=== PATIENT | female | born 1995 | race African-American/Black ===

== ENCOUNTER → 2017-03-10 | Outpatient (CLI) | payer SELFPAY ==
--- NOTE | 2017-03-10 17:35 | RADIOLOGY REPORT (SQ) ---
EXAM DESCRIPTION: U/S [id number] TRNABD 1GES W/ODOP COMPLETED DATE/TIME: 03/10/2017 5:27 pm REASON FOR STUDY: Z34.81 ENCOUNTER FOR SUPRVSN OF NORMAL , FIRST TRIM COMPARISON: None. TECHNIQUE: Transabdominal static and realtime grayscale images acquired of the pelvis. Additional se lected spectral and color Doppler images recorded. All images stored on PACs. bHCG: Not available LIMITATIONS: None. FINDINGS: FETUS: Living intrauterine . EGA: 10 weeks 4 days UMA: 10/02/2017 FHR: 178 beats per minute. SUBCHORIONIC BLEED: No SIZE OF BLEED: Not applicable. 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 The IUP appears to be in the left horn . CERVICAL LENGTH: 4 cm Closed. RIGHT ADNEXA: Normal ovary with normal vascular flow. No adnexal free fluid. No adnexal masses. LEFT ADNEXA: Normal ovary with normal vascular flow. No adnexal free fluid. No adnexal masses. FREE FLUID: None. OTHER: No other significant finding. IMPRESSION: LIVING INTRAUTERINE . EGA 10 weeks 4 days Trimester of : First - 0 to 13 weeks. TECHNICAL DOCUMENTATION: JOB ID: [id number] [email or web address]- All Rights Reserved
== END ==
LOC: RAD 15:48
PROVIDERS: ATTEND Nurse Practitioner Women's Health
DX: Z34.81 Encounter for supervision of other normal pregnancy, first trimester (principal)
CPT/HCPCS: 76801

== ENCOUNTER 2017-08-14 02:05 | Emergency (ER) | payer MEDICAID ==
[2017-08-14] MEDS ORDERED: LIDOCAINE 2% VISCOUS SOLN 20 ML UDCUP PO ONE (03:42)
[2017-08-14] MEDS ORDERED: ACETAMINOPHEN 325 MG TABLET PO ONE (03:43)
--- NOTE | 2017-08-14 03:46 | ER Document Report ---
HPI - HPI Pain Level: 4 Notes: Patient is a 22-year-old female who is approximately 8 months who presents the ED complaining of right lower dental pain to #323 days. Patient has not noticed any obvious abscess or drainage. Patient states that the pain is described as an ache and does not radiate. Patient has not noticed any facial swelling. She is still eating and drinking without any difficulties. She is urinating normally and having normal bowel movements. Patient does not have a dentist. Denies any headache, fever, neck pain, URI, sore throat, chest pain, palpitations, syncope, cough, shortness of breath, wheeze, dyspnea, abdominal pain, nausea/vomiting/diarrhea, urinary retention, dysuria, hematuria , loss of control of bowel or bladder, numbness/tingling, or rash. - ROS Notes: REVIEW OF SYSTEMS: CONSTITUTIONAL : Denies fever, chills, or sweats. Denies recent illness. EENT: see hpi CARDIOVASCULAR: Denies chest pain. Denies palpitations or racing or irregular heart beat. Denies ankle edema. RESPIRATORY: Denies cough, cold, or chest congestion. Denies shortness of breath, difficulty breathing, or wheezing. GASTROINTESTINAL: Denies abdominal pain or distention. Denies nausea, vomiting , or diarrhea. Denies blood in vomitus, stools, or per rectum. Denies black, tarry stools. Denies constipation. GENITOURINARY: Denies difficulty urinating, painful urination, burning, frequency, blood in urine, or discharge. MUSCULOSKELETAL: Denies back or neck pain or stiffness. Denies joint pain or swelling. SKIN: Denies rash, lesions or sores. NEUROLOGICAL: Denies dizziness or lightheadedness. Denies headache. Denies problems with gait or speech. Denies sensory loss, numbness, or tingling. Denies seizures. ALL OTHER SYSTEMS REVIEWED AND NEGATIVE. Dictation was performed using [employer] voice recognition software - REPRODUCTIVE LMP: 12-27-16 Reproductive: DENIES: : Past Medical History - Social History Smoking Status: Never Smoker Family History: Reviewed & Not Pertinent Vertical Provider Document - CONSTITUTIONAL Agree With Documented VS: Yes Notes: PHYSICAL EXAMINATION: GENERAL: Well-appearing, well-nourished and in no acute distress. HEAD: Atraumatic, normocephalic. EYES: Pupils equal round and reactive to light, extraocular movements intact, sclera anicteric, conjunctiva are normal. ENT: EAC clear b/l. TM's intact b/l without erythema, fluid, or perforation. Nares patent and without discharge. oropharynx clear without exudates. No tonsilar hypertrophy or erythema. Moist mucous membranes. No sinus tenderness. Uvula midline. No palatine shift. No tongue protrusion. No respiratory compromise. Mouth: Poor dentition. + mild decay and mild gingivitis. No obvious abscess or discharge noted. No facial swelling. + tenderness to tooth #32. NECK: Normal range of motion, supple without lymphadenopathy. No rigidity/ meningismus. LUNGS: Breath sounds clear to auscultation bilaterally and equal. No wheezes rales or rhonchi. HEART: Regular rate and rhythm without murmurs, rubs, gallops. NEUROLOGICAL: Cranial nerves grossly intact. Normal speech, normal gait. Normal sensory, motor exams PSYCH: Normal mood, normal affect. SKIN: Warm, Dry, normal turgor, no rashes or lesions noted. - INFECTION CONTROL TRAVEL OUTSIDE OF THE [place] IN LAST 30 DAYS: No - RESPIRATORY O2 Sat by Pulse Oximetry: 100 Course - Re-evaluation Re-evalutation: 08/14/17 03:59 Patient is an afebrile, well-hydrated, 22-year-old female who presents to the ED with dental pain to #32, suspect nerve root etiology versus infection. Vitals are stable. PE is otherwise unremarkable. Low suspicion for any meningitis, sepsis, peritonsillar/pharyngeal abscess, respiratory compromise, Talha's, temporal arteritis, or other emergent systemic condition at this time. Patient is aware this condition can change from initial presentation and she needs to monitor symptoms closely. I will send her home with a prescription for penicillin as well as viscous lidocaine. Conservative measures otherwise for symptoms. Call to schedule an appointment with a dentist for further evaluation and management. Recheck with your PCM this week as well. Return to the ED with any worsening/concerning symptoms otherwise as reviewed in discharge. Patient is in agreement. - Vital Signs Vital signs: Temp Pulse Resp BP Pulse Ox 98.6 F 97 18 118/64 100 08/14/17 02:18 08/14/17 02:18 08/14/17 02:18 08/14/17 02:18 12/31/17 02:18 Discharge - Discharge Clinical Impression: Toothache Condition: Stable Disposition: HOME, SELF-CARE Instructions: [facility], Toothache ([facility]) Additional Instructions: [place] and floss twice daily Maintain fluid intake Take antibiotics as directed Mouthwash, salt water gargles, peroxide rinse as needed Tylenol/ibuprofen as needed Recheck with PCM this week Call today/tomorrow and schedule an appointment with your dentist for further evaluation Return to the ED with any worsening symptoms and/or development of fever, headache, facial swelling, swelling of lips/tongue/throat, trouble swallowing, drooling, hoarseness, neck pain/stiffness, chest pain, palpitations, syncope, shortness of breath, trouble breathing, abdominal pain, n/v/d, numbness/tingling , or other worsening symptoms that are concerning to you. Prescriptions: Penicillin V Potassium [Penicillin Vk 500 mg Tablet] 500 mg PO BID #20 tablet Referrals: [facility] [Provider Group] - Follow up as needed
[2017-08-14 04:23] VITALS: BP 109/64
== END 2017-08-14 04:22 | disposition home or self-care (01) ==
LOC: ER 02:05
DX: K08.89 Other specified disorders of teeth and supporting structures (principal); R22.0 Localized swelling, mass and lump, head; Z3A.36 36 weeks gestation of pregnancy
CPT/HCPCS: 99282; J3490 ×2

== ENCOUNTER 2017-10-05 14:07 | Outpatient (CLI) | payer OTHER, MEDICAID ==
[2017-10-05 14:41] LABS: APPEARANCE,URINE CLOUDY; BILIRUBIN,URINE NEGATIVE (NEGATIVE); COLOR,URINE YELLOW; GLUCOSE, URINE NEGATIVE (NEGATIVE); KETONES,URINE NEGATIVE (NEGATIVE); LEUKOCYTE ESTERASE,URINE MODERATE (NEGATIVE); NITRITE,URINE NEGATIVE (NEGATIVE); PROTEIN,URINE NEGATIVE (NEGATIVE); URINE SPECIFIC GRAVITY 1.009; UROBILINOGEN,URINE NEGATIVE mg/dL (<2.0)
[2017-10-05 15:03] LABS: URINE AMPHETAMINES SCREEN NEGATIVE; URINE BARBITURATES SCREEN NEGATIVE; URINE BENZODIAZEPINES SCREEN NEGATIVE; URINE COCAINE SCREEN NEGATIVE; URINE MARIJUANA (THC) SCREEN NEGATIVE; URINE METHADONE SCREEN NEGATIVE; URINE PHENCYCLIDINE SCREEN NEGATIVE
== END 2017-10-05 15:15 | disposition home or self-care (01) ==
LOC: LC 14:07
PROVIDERS: ATTEND Obstetrics & Gynecology
PROC: 4A1HXCZ Monitoring of Products of Conception, Cardiac Rate, External Approach (ICD-10-PCS; principal; 2017-10-05)
DX: O47.1 False labor at or after 37 completed weeks of gestation (principal); Z3A.40 40 weeks gestation of pregnancy
CPT/HCPCS: 59025; 80307; 81005

== ENCOUNTER 2017-10-06 02:16 | Inpatient (IN) | payer MEDICAID, OTHER ==
[2017-10-06 03:10] LABS: APPEARANCE,URINE CLOUDY; BILIRUBIN,URINE NEGATIVE (NEGATIVE); COLOR,URINE YELLOW; GLUCOSE, URINE NEGATIVE (NEGATIVE); KETONES,URINE NEGATIVE (NEGATIVE); LEUKOCYTE ESTERASE,URINE NEGATIVE (NEGATIVE); NITRITE,URINE NEGATIVE (NEGATIVE); PROTEIN,URINE NEGATIVE (NEGATIVE); URINE SPECIFIC GRAVITY 1.016; UROBILINOGEN,URINE NEGATIVE mg/dL (<2.0)
[2017-10-06 03:18] LABS: AMNISURE (ROM) POSITIVE (NEGATIVE)
[2017-10-06 03:24] LABS: URINE AMPHETAMINES SCREEN NEGATIVE; URINE BARBITURATES SCREEN NEGATIVE; URINE BENZODIAZEPINES SCREEN NEGATIVE; URINE COCAINE SCREEN NEGATIVE; URINE MARIJUANA (THC) SCREEN NEGATIVE; URINE METHADONE SCREEN NEGATIVE; URINE PHENCYCLIDINE SCREEN NEGATIVE
[2017-10-06 03:52] LABS: ABSOLUTE LYMPHOCYTES (AUTO) 2.3 10^3/uL (0.5-4.7); ABSOLUTE MONOCYTES (AUTO) 1.1 10^3/uL (0.1-1.4); ABSOLUTE NEUT (AUTO) 8.9 10^3/uL (1.7-8.2); BASOPHILS % (AUTO) 0.3 % (0-2); EOSINOPHILS % (AUTO) 0.4 % (0-6); HEMATOCRIT 32.5 % (36.0-47.0); HEMOGLOBIN 10.8 g/dL (12.0-15.5); LYMPHOCYTES % (AUTO) 18.4 % (13-45); MEAN CORPUSCULAR HEMOGLOBIN 25.6 pg (27.0-33.4); MEAN CORPUSCULAR HGB CONC 33.2 g/dL (32.0-36.0); MEAN CORPUSCULAR VOLUME 77 fl (80-97); MONOCYTES % (AUTO) 8.7 % (3-13); PLATELET COUNT 177 10^3/uL (150-450); RED CELL DISTRIBUTION WIDTH 14.8 % (11.5-14.0); SEGMENTED NEUTROPHILS % (AUTO) 72.2 % (42-78); TOTAL CELLS COUNTED % (AUTO) 100 %; WHITE BLOOD COUNT 12.3 10^3/uL (4.0-10.5)
[2017-10-06] MEDS ORDERED: RINGERS SOLUTION,LACTATED 1,000 ML IV ONE (04:15)
[2017-10-06] MEDS ORDERED: NALBUPHINE HCL INJ 10 MG/1 ML AMPULE ONE ×2 (04:17→10:56)
[2017-10-06] MEDS ORDERED: PROMETHAZINE HCL INJ 25 MG/1 ML VIAL ONE (04:17)
[2017-10-06] MEDS ORDERED: NALBUPHINE HCL INJ 10 MG/1 ML AMPULE IV ONE (04:30)
[2017-10-06] MEDS ORDERED: PROMETHAZINE HCL INJ 25 MG/1 ML VIAL IV ONE (04:30)
[2017-10-06] MEDS: RINGERS SOLUTION,LACTATED 1,000 ML IV PRN ×4 (04:42→17:49)
[2017-10-06] MEDS ORDERED: OXYTOCIN/NORMAL SALINE 20 UNIT/1,000 ML RTUINJ ONE (08:39)
[2017-10-06] MEDS ORDERED: MISOPROSTOL 0.2 MG TABLET ONE (08:39)
[2017-10-06] MEDS ORDERED: LIDOCAINE 1% INJ-PF (10 MG/ML) 30 ML SDV ONE (08:39)
--- NOTE | 2017-10-06 09:07 | Warning Signs in Babies ---
VOD Warning Signs Datetime Report Generated by [facility]: 10/06/2017 09:07 VOD#608 -Warning Signs in Babies: Viewed with Parent(s)/Family (10/06/2017 09:07:Aissatou Narayanan RN)
[2017-10-06] MEDS ORDERED: OXYTOCIN/NORMAL SALINE 20 UNIT/1,000 ML RTUINJ IV PRN (09:10)
[2017-10-06] MEDS ORDERED: DIPH/PERTUSS(ACELL)/TETANUS VAC/PF 0.5 ML SYR (>=10YO) IM PRN (09:10)
[2017-10-06] MEDS ORDERED: ACETAMINOPHEN WITH CODEINE #3 TABLET PO PRN ×2 (09:10)
[2017-10-06] MEDS ORDERED: MAGNESIUM HYDROXIDE SUSP 30 ML UDCUP PO PRN (09:10)
[2017-10-06] MEDS ORDERED: GLYCERIN/WITCH HAZEL LEAF 1 EACH MED..PAD TP PRN (09:10)
[2017-10-06] MEDS ORDERED: PROMETHAZINE HCL 25 MG TABLET PO PRN (09:10)
[2017-10-06] MEDS ORDERED: PROMETHAZINE HCL 25 MG SUPP.RECT PR PRN (09:10)
[2017-10-06] MEDS ORDERED: MEASLES,MUMPS&RUBELLA VACC/PF 0.5 ML VIAL SUBCUT PRN (09:10)
[2017-10-06] MEDS ORDERED: PROMETHAZINE HCL INJ 25 MG/1 ML VIAL IV PRN (09:10)
[2017-10-06] MEDS ORDERED: DIBUCAINE 1% OINTMENT 28 GM TP PRN (09:10)
[2017-10-06] MEDS ORDERED: ACETAMINOPHEN 650 MG SUPP.RECT PR PRN (09:10)
[2017-10-06] MEDS ORDERED: ZOLPIDEM TARTRATE 5 MG TABLET PO PRN (09:10)
[2017-10-06] MEDS ORDERED: DIPHENHYDRAMINE HCL 25 MG CAPSULE PO PRN (09:10)
[2017-10-06] MEDS ORDERED: BENZOCAINE/MENTHOL AEROSOL SPRAY 56 ML TOP PRN (09:10)
[2017-10-06] MEDS ORDERED: NA PHOS,M-B/NA PHOS,DI-BA (ADULT) 133 ML ENEMA PR PRN (09:10)
[2017-10-06] MEDS ORDERED: PSEUDOEPHEDRINE HCL 30 MG TABLET PO PRN (09:10)
[2017-10-06] MEDS ORDERED: MISOPROSTOL 0.2 MG TABLET PR ONE (10:38)
[2017-10-06] MEDS ORDERED: CEFAZOLIN 2 GM/D5W RTU 0 GM/0 ML RTUPB IV ONE (10:56)
[2017-10-06] MEDS ORDERED: NORMAL SALINE 250 ML IV PRN (11:05)
[2017-10-06] MEDS ORDERED: CEFAZOLIN 2 GM/D5W RTU 2 GM/50 ML RTUPB IV ONE (11:07)
--- NOTE | 2017-10-06 11:19 | L&D Progress Notes ---
PROGRESS NOTES Datetime Report Generated by CPN: 10/06/2017 11:18 PROGRESS NOTE Informed Consent Obtained: Risks, Benefits and Alternatives Discussed Vital Signs : Reviewed Comment: Called to room for bleeding. Cytotec OK given 1000mcg. Pt continuing to bleed - pitocin infusing. Brenner to gravity placed. Nubain ordered and Ancef ordered. Uterine evacuation performed with large amount of clot and blood. Weighed with 1700ml EBL. Type and cross ordered. Stat CBC and coags ordered. REviewed with patient that will very likely need transfusion. will await labs and monitor VS. HIV not done in 3rd trimester - done with repeat draw. VAGINAL EXAM Dilatation: 3 Effacement: 50 Station: -1 MEMBRANES Pooling: Positive Membranes: Ruptured FETUS A : 40.0 Presentation: Vertex SIGNATURE SIGNATURE: [id number] SIGNATURE: [id number] Signature: with User ID: [email or web address] : I personally evaluated and examined the patient in conjunction with the MLP and agree with the assessment, treatment plan and disposition.
[2017-10-06 11:50] LABS: INTERNATIONAL RATION (INR) 1.04; PROTHROMBIN TIME 14.4 SEC (11.4-15.4)
[2017-10-06 11:51] LABS: FIBRINOGEN 253 mg/dL (209-497); PARTIAL THROMBOPLASTIN TIME 27.9 SEC (23.5-35.8)
[2017-10-06] MEDS ORDERED: NALBUPHINE HCL INJ 10 MG/1 ML AMPULE INJ ONE (12:00)
[2017-10-06] MEDS: FAMOTIDINE 20 MG TABLET PO SCH ×2 (12:28→22:35)
[2017-10-06] MEDS: SENNOSIDES/DOCUSATE 8.6-50 MG 1 EACH TABLET PO SCH (12:28)
[2017-10-06] MEDS: FERROUS SULFATE 325 MG TABLET PO SCH ×2 (12:28→19:27)
[2017-10-06] MEDS: DOCUSATE SODIUM 100 MG CAPSULE PO SCH ×2 (12:28→19:27)
[2017-10-06] MEDS: PRENATAL VITAMIN W DHA CAPSULE PO SCH (12:28)
[2017-10-06 12:56] LABS: ABSOLUTE LYMPHOCYTES (AUTO) 1.8 10^3/uL (0.5-4.7); ABSOLUTE MONOCYTES (AUTO) 1.6 10^3/uL (0.1-1.4); ABSOLUTE NEUT (AUTO) 14.6 10^3/uL (1.7-8.2); BASOPHILS % (AUTO) 0.2 % (0-2); HEMATOCRIT 26.2 % (36.0-47.0); LYMPHOCYTES % (AUTO) 9.9 % (13-45); MEAN CORPUSCULAR HEMOGLOBIN 25.5 pg (27.0-33.4); MEAN CORPUSCULAR HGB CONC 32.8 g/dL (32.0-36.0); MEAN CORPUSCULAR VOLUME 78 fl (80-97); MONOCYTES % (AUTO) 8.8 % (3-13); PLATELET COUNT 205 10^3/uL (150-450); RED BLOOD COUNT 3.36 10^6/uL (3.72-5.28); RED CELL DISTRIBUTION WIDTH 14.8 % (11.5-14.0); SEGMENTED NEUTROPHILS % (AUTO) 81.1 % (42-78); TOTAL CELLS COUNTED % (AUTO) 100 %
[2017-10-06 12:58] LABS: HEMOGLOBIN 8.6 g/dL (12.0-15.5)
[2017-10-06] MEDS ORDERED: IBUPROFEN 800 MG TABLET ONE (14:33)
[2017-10-06] MEDS: IBUPROFEN 800 MG TABLET PO SCH ×2 (14:34→22:35)
--- NOTE | 2017-10-06 18:12 | Admission Physical ---
Datetime Report Generated by CPN: 10/06/2017 18:12 CURRENT ADMISSION Chief Complaint: Suspected Ruptured Membranes Indication for Induction: Post Dates Indication for Induction: Term, Intrauterine ; Ruptured Membranes Admit Plan: Admit to Unit; Initiate Labor Protocol ALLERGIES Medication Allergies: No Medication Allergies: No Known Allergies (10/05/2017) Medication Allergies: No Known Allergies (05/25/2016) Latex: No Latex Allergies OBSTETRICAL HISTORY EDC: 10/02/2017 00:00 : 2 Para: 1 Term: 1 : 0 SAB: 0 IAB: 0 Ectopic: 0 Livin Cesareans: 0 VBACs: 0 Multiple Births: 0 Gestational Diabetes: No Rh Sensitization: No Incompetent Cervix: No HANH: No Infertility: No ART Treatment: No Uterine Anomaly: No IUGR: No Hx Previous C/S: No Macrosomia: No Hx Loss/Stillborn: No PIH: No Hx : No Placenta Previa/Abruption: No Depression/PP Depression: No PTL/PROM: No Post Hemorrhage: No Current Procedures: Ultrasound; NST Obstetrical History Comments: 2015, SEE RECORDS Alcohol: No Marijuana : No Cocaine: No Other Illicit Drugs: No Cigarettes: Never Smoker. 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 INFECTIOUS HISTORY Gonorrhea: Yes Genital Herpes: No Chlamydia: No Tuberculosis: No Syphilis: No Hepatitis: No HIV/AIDS Exposure: No Rash or Viral Illness: No HPV: No Infectious History Comments: gonorrhea and trichomonas treated on 03/2017 PHYSICAL EXAM General: Normal HEENT: Normal Neurologic: Normal Thyroid: Normal Heart: Normal Lungs: Normal Breast: Deferred Back: Normal Abdomen: Normal Genitourinary Exam: Normal Extremities: Normal DTRs: Normal Pelvic Type: Adequate Vital Signs: Reviewed VAGINAL EXAM Dilatation: 3 Effacement: 50 Station: -1 MEMBRANES Pooling: Positive Membranes: Ruptured FETUS A EGA: 40.4 FHR- Baseline: 130 Variability: Moderate 6-25bpm Accelerations: 15X15 Decelerations: None FHR Category: Category I Presentation: Vertex Admit Comment: efw of 8 lbs PLANS FOR LABOR AND DELIVERY Labor and Delivery: None Pain Management: Medications Feeding Preference: Breast Benefit of Breast Feed Discussed: Yes Circumcision: N/A INFORMED CONSENT Informed Consent Obtained: Risks, Benefits and Alternatives Discussed Signature: with User ID: [email or web address] : I personally evaluated and examined the patient in conjunction with the MLP and agree with the assessment, treatment plan and disposition.
[2017-10-06] MEDS: CEFAZOLIN 2 GM/D5W RTU 2 GM/50 ML RTUPB IV SCH ×2 (19:43→23:49)
[2017-10-06 22:47] LABS: HEMATOCRIT 25.3 % (36.0-47.0); HEMOGLOBIN 8.6 g/dL (12.0-15.5); MEAN CORPUSCULAR HEMOGLOBIN 26.6 pg (27.0-33.4); MEAN CORPUSCULAR HGB CONC 34.1 g/dL (32.0-36.0); MEAN CORPUSCULAR VOLUME 78 fl (80-97); PLATELET COUNT 201 10^3/uL (150-450); RED BLOOD COUNT 3.23 10^6/uL (3.72-5.28); RED CELL DISTRIBUTION WIDTH 15.5 % (11.5-14.0); WHITE BLOOD COUNT 21.9 10^3/uL (4.0-10.5)
[2017-10-06 23:05] LABS: ABSOLUTE LYMPHOCYTES# (MANUAL) 3.9 10^3/uL (0.5-4.7); ABSOLUTE MONOCYTES # (MANUAL) 0.7 10^3/uL (0.1-1.4); ABSOLUTE NEUTROPHILS# (MANUAL) 17.3 10^3/uL (1.7-8.2); BAND NEUTROPHILS % (MANUAL) 2 % (3-5); BASOPHILS % (MANUAL) 0 % (0-2); EOSINOPHILS % (MANUAL) 0 % (0-6); LYMPHOCYTES % (MANUAL) 18 % (13-45); METAMYELOCYTES % (MANUAL) 1 % (0); MONOCYTES % (MANUAL) 3 % (3-13); SEGMENTED NEUTROPHILS % (MAN) 76 % (42-78); TOTAL CELLS COUNTED 100
[2017-10-06 23:07] LABS: ANISOCYTOSIS SLIGHT; OVALOCYTES SLIGHT; PLATELET COMMENT ADEQUATE; POIKILOCYTOSIS SLIGHT
[2017-10-07] MEDS ORDERED: AMPICILLIN SOD/SULBACTAM 3 GM VIAL IV PRN
[2017-10-07] MEDS: AMPICILLIN SODIUM/SULBACTAM NA 3 GM in NORMAL SALINE 100 ML IV SCH ×4 (03:43→22:29)
[2017-10-07] MEDS: CEFAZOLIN 2 GM/D5W RTU 2 GM/50 ML RTUPB IV SCH (05:32)
[2017-10-07] MEDS: IBUPROFEN 800 MG TABLET PO SCH ×3 (05:32→22:30)
[2017-10-07 07:56] LABS: HEMATOCRIT 22.8 % (36.0-47.0); MEAN CORPUSCULAR HEMOGLOBIN 25.8 pg (27.0-33.4); MEAN CORPUSCULAR HGB CONC 33.3 g/dL (32.0-36.0); MEAN CORPUSCULAR VOLUME 78 fl (80-97); PLATELET COUNT 134 10^3/uL (150-450); RED BLOOD COUNT 2.94 10^6/uL (3.72-5.28); RED CELL DISTRIBUTION WIDTH 16.2 % (11.5-14.0); WHITE BLOOD COUNT 13.6 10^3/uL (4.0-10.5)
[2017-10-07 08:01] LABS: HEMOGLOBIN 7.6 g/dL (12.0-15.5)
[2017-10-07] MEDS: RINGERS SOLUTION,LACTATED 1,000 ML IV PRN (08:50)
[2017-10-07] MEDS: PRENATAL VITAMIN W DHA CAPSULE PO SCH (10:08)
[2017-10-07] MEDS: FAMOTIDINE 20 MG TABLET PO SCH ×2 (10:08→22:30)
[2017-10-07] MEDS: SENNOSIDES/DOCUSATE 8.6-50 MG 1 EACH TABLET PO SCH (10:08)
[2017-10-07] MEDS: DOCUSATE SODIUM 100 MG CAPSULE PO SCH ×2 (10:09→18:40)
[2017-10-07] MEDS: FERROUS SULFATE 325 MG TABLET PO SCH ×2 (10:09→18:40)
--- NOTE | 2017-10-07 10:09 | PDOC PROGRESS REPORT ---
Subjective-OB Progress Note for:: 10/07/17 Subjective: Sitting up in bed, doing better after blood transfusion, no c/o, eating well, passing gas, paulino remains in place Physical Exam (OB) Vital Signs: Temp Pulse Resp BP Pulse Ox 97.6 F 84 20 101/58 L 99 10/07/17 08:21 10/07/17 08:21 10/07/17 08:21 10/07/17 08:21 10/07/17 08:21 Intake & Output 10/06/17 10/07/17 10/08/17 06:59 06:59 06:59 Intake Total 850 Output Total 1000 Balance -150 Weight 81.7 kg - PIH/Pre-Eclampsia DTR's: 2 + Clonus: Negative Headache: Absent Epigastric Pain: No Visual Changes: No - Lochia Lochia Amount: Scant < 10 ml Lochia Color: Rubra/Red - Abdomen Description: Soft, Round Hernia Present: No Fundal Description: Firm, Midline Fundal Height: u/u - u/2 Objective-Diagnostic Laboratory: 10/07/17 07:19 10/06/17 10/06/17 10/06/17 03:37 11:52 22:00 WBC 18.0 H 21.9 H RBC 3.36 L 3.23 L Hgb 8.6 L D 8.6 L Hct 26.2 L 25.3 L MCV 78 L 78 L MCH 25.5 L 26.6 L MCHC 32.8 34.1 RDW 14.8 H 15.5 H Plt Count 205 201 Seg Neutrophils % 81.1 H Not Reportable Lymphocytes % 9.9 L Not Reportable Monocytes % 8.8 Not Reportable Eosinophils % 0.0 Not Reportable Basophils % 0.2 Not Reportable Absolute Neutrophils 14.6 H Not Reportable Absolute Lymphocytes 1.8 Not Reportable Absolute Monocytes 1.6 H Not Reportable Absolute Eosinophils 0.0 Not Reportable Absolute Basophils 0.0 Not Reportable Blood Type A POSITIVE Antibody Screen NEGATIVE 10/07/17 07:19 WBC 13.6 H RBC 2.94 L Hgb 7.6 L Hct 22.8 L MCV 78 L MCH 25.8 L MCHC 33.3 RDW 16.2 H Plt Count 134 L Seg Neutrophils % Lymphocytes % Monocytes % Eosinophils % Basophils % Absolute Neutrophils Absolute Lymphocytes Absolute Monocytes Absolute Eosinophils Absolute Basophils Blood Type Antibody Screen Assessment and Plan(PN) - Assessment and Plan (1) Anemia associated with acute blood loss Is this a current diagnosis for this admission?: Yes (2) Vaginal delivery Is this a current diagnosis for this admission?: Yes (3) hemorrhage, delivered, current hospitalization Is this a current diagnosis for this admission?: Yes (4) Marijuana use Is this a current diagnosis for this admission?: Yes - Time Spent with Patient Time with patient: Less than 15 minutes Smoking Education Provided: Over 3 minutes Medications reviewed and adjusted accordingly: Yes - Disposition Anticipated Discharge: Home Within: within 24 hours
[2017-10-07 21:47] LABS: HEMATOCRIT 25.8 % (36.0-47.0); HEMOGLOBIN 8.7 g/dL (12.0-15.5); MEAN CORPUSCULAR HEMOGLOBIN 26.3 pg (27.0-33.4); MEAN CORPUSCULAR HGB CONC 33.8 g/dL (32.0-36.0); MEAN CORPUSCULAR VOLUME 78 fl (80-97); PLATELET COUNT 182 10^3/uL (150-450); RED BLOOD COUNT 3.32 10^6/uL (3.72-5.28); RED CELL DISTRIBUTION WIDTH 16.6 % (11.5-14.0); WHITE BLOOD COUNT 14.7 10^3/uL (4.0-10.5)
[2017-10-08] MEDS ORDERED: AMPICILLIN SODIUM/SULBACTAM NA 3 GM in NORMAL SALINE 100 ML IV SCH (06:00)
[2017-10-08] MEDS: IBUPROFEN 800 MG TABLET PO SCH (06:56)
--- NOTE | 2017-10-08 08:19 | PDOC PROGRESS REPORT ---
Subjective-OB Progress Note for:: 10/08/17 Subjective: Doing well, OOB in room and halls, feeling good, ready to go home, scant bleeding, eating and voiding well Physical Exam (OB) Vital Signs: Temp Pulse Resp BP Pulse Ox 98.1 F 74 18 96/59 L 96 10/08/17 04:00 10/08/17 04:00 10/08/17 04:00 10/08/17 04:00 10/08/17 04:00 Intake & Output 10/07/17 10/08/17 10/09/17 06:59 06:59 06:59 Intake Total 850 240 Output Total 1000 900 Balance -150 -660 - PIH/Pre-Eclampsia DTR's: 2 + Clonus: Negative Headache: Absent Epigastric Pain: No Visual Changes: No - Lochia Lochia Amount: Small 10-25 ml Lochia Color: Rubra/Red - Abdomen Description: Soft, Round Hernia Present: No Fundal Description: Firm, Midline Fundal Height: u/u - u/2 Objective-Diagnostic Laboratory: 10/07/17 21:40 10/07/17 21:40 WBC 14.7 H RBC 3.32 L Hgb 8.7 L Hct 25.8 L MCV 78 L MCH 26.3 L MCHC 33.8 RDW 16.6 H Plt Count 182 Assessment and Plan(PN) - Assessment and Plan (1) Anemia associated with acute blood loss Is this a current diagnosis for this admission?: Yes (2) Vaginal delivery Is this a current diagnosis for this admission?: Yes (3) hemorrhage, delivered, current hospitalization Is this a current diagnosis for this admission?: Yes (4) Marijuana use Is this a current diagnosis for this admission?: Yes - Time Spent with Patient Time with patient: Less than 15 minutes Smoking Education Provided: Over 3 minutes Medications reviewed and adjusted accordingly: Yes - Disposition Anticipated Discharge: Home Within: Other - home today
--- NOTE | 2017-10-08 08:23 | PDOC DISCHARGE SUMMARY ---
Final Diagnosis Discharge Date: 10/08/17 - Final Diagnosis (1) Anemia associated with acute blood loss Is this a current diagnosis for this admission?: Yes (2) Vaginal delivery Is this a current diagnosis for this admission?: Yes (3) hemorrhage, delivered, current hospitalization Is this a current diagnosis for this admission?: Yes (4) Marijuana use Is this a current diagnosis for this admission?: Yes Discharge Data - Discharge Medication Prescriptions: Ferrous Sulfate [Feosol 325 mg Tablet] 325 mg PO BID #60 tablet Ibuprofen [Motrin 800 mg Tablet] 800 mg PO Q8 #30 tablet Home Medications: Ferrous Sulfate [Iron] 325 mg PO BID 10/05/17 No122/Iron/Folic Acid [ Multi Tablet] 1 each PO DAILY 10/05/17 Ferrous Sulfate [Feosol 325 mg Tablet] 325 mg PO BID #60 tablet 10/07/17 Ibuprofen [Motrin 800 mg Tablet] 800 mg PO Q8 #30 tablet 10/07/17 Gestational Age: 40.3 Reason(s) for Admission: Onset of Labor Procedures: NST, Ultrasound Intrapartum Procedure(s): Spontaneous Vaginal Delivery - Data Baby 1 Female Home with Mother: Yes Complications: No - Diagnosis Test Laboratory: Temp Pulse Resp BP Pulse Ox 98.1 F 74 18 96/59 L 96 10/08/17 04:00 10/08/17 04:00 10/08/17 04:00 10/08/17 04:00 10/08/17 04:00 10/06/17 10/06/17 10/06/17 02:43 03:37 11:52 RBC 4.20 3.36 L Hgb 10.8 L 8.6 L D Hct 32.5 L 26.2 L Urine Opiates Screen NEGATIVE 10/06/17 10/07/17 10/07/17 22:00 07:19 21:40 RBC 3.23 L 2.94 L 3.32 L Hgb 8.6 L 7.6 L 8.7 L Hct 25.3 L 22.8 L 25.8 L Urine Opiates Screen - Discharge information/Instructions Discharge Activity: Activity As Tolerated, No Lifting Over 10 Pounds, No Lifting /Push/Pulling, Pelvic Rest Discharge Diet: As Tolerated, Regular Disposition: HOME, SELF-CARE Follow up with: [facility] in: 1, Weeks
[2017-10-08 10:11] VITALS: BP 96/59
--- NOTE | 2017-10-25 10:54 | Delivery Summary ---
Del Sum A-C Datetime Report Generated by CPN: 10/25/2017 10:54 DELIVERY PERSONNEL DELIVERY PERSONNEL: [id number] Delivery Doctor:: Kenisha Null MD Nurse Slusher Operator Certified:: Ailyn Benz CNM Labor and Delivery Nurse:: Aissatou Narayanan RNlaw reporter Nurse:: SHIRLENE Wheeler Simulation Tech/SHELL MACHINE OPERATOR: Val Rivera CST Additional Personnel: : SHIRLENE Zambrano MATERNAL INFORMATION Delivery Anesthesia: None Medications After Delivery: Pitocin Bolus-Please Comment; Pitocin Drip 20 Units/1000ml NSS Estimated Blood Loss (ml): 250 Maternal Complications: Precipitous Labor (<3hrs) Provider Comments: Called to room 2-Dr Null present and viable female delivered and crying. at 0846. Spontaneous respirations and cry. 3 vessel cord. Apgars 9-10. Cord clamped and cut by family member. Placenta, membranes, and cord expelled at 0853, Dozier presentation. Perineum inspected-intact. FF @ U-2. Patient tolerated procedure well. LABOR SUMMARY EDC: 10/02/2017 00:00 No. Babies in Womb: 1 Attempted: No Labor Anesthesia: IV Sedation LABOR INFORMATION Reason for Induction: Not Applicable Onset of Labor: 10/05/2017 10:00 Complete Dilatation: 10/06/2017 08:35 Oxytocin: N/A Group B Beta Strep: negative Antibiotics # of Doses: 0 Steroids Given: None Reason Steroids Not Administered: Not Applicable MEMBRANES Membranes Rupture Method: Spontaneous Rupture of Membranes: 10/06/2017 03:00 Length of Rupture (hr): 5.77 Amniotic Fluid Color: Clear Amniotic Fluid Amount: Small Amniotic Fluid Odor: Normal STAGES OF LABOR Stage 1 hr: 22 Stage 1 min: 35 Stage 2 hr: 0 Stage 2 min: 11 Stage 3 hr: 0 Stage 3 min: 7 Total Time in Labor hr: 22 Total Time in Labor min: 53 VAGINAL DELIVERY Episiotomy: None Laceration #1: None Laceration Extension #1: N/A Laceration Repair: Not Applicable Sponge Count Correct: N/A Sharps Count Correct: Yes CSECTION DELIVERY Primary Indication: N/A Secondary Indication: N/A CSection Incidence: N/A Labor: N/A Elective: N/A CSection Incision: N/A BABY A INFORMATION Delivery Date/Time: 10/06/2017 08:46 Method of Delivery: Vaginal Born in Route : No : N/A Forceps: N/A Vacuum Extraction: N/A Shoulder Dystocia : No PRESENTATION/POSITION BABY A Presentation: Cephalic Cephalic Presentation: Vertex Vertex Position: Right Occipital Anterior Breech Presentation: N/A PLACENTA INFORMATION BABY A Placenta Delivery Time : 10/06/2017 08:53 Placenta Method of Delivery: Spontaneous Placenta Status: Delivered SCORES BABY A Heart Rate 1 min: >100 bpm Resp Effort 1 min: Good Cry Reflex Irritability 1 min: Cough or Sneeze or Pulls Away Muscle Tone 1 min: Active Motion Color 1 min: Body [place], Extremities Blue Resuscitation Effort 1 min: Tactile Stimulation SCORE 1 MIN: 9 Heart Rate 5 min: >100 bpm Resp Effort 5 min: Good Cry Reflex Irritability 5 min: Cough or Sneeze or Pulls Away Muscle Tone 5 min: Active Motion Color 5 min: Completely [place] Resuscitation Effort 5 min: N/A SCORE 5 MIN: 10 Resuscitation Effort 10 min: N/A INFANT INFORMATION BABY A Gestational Age at Delivery: 40.4 Gestational Status: Full Term- 39- 40.6 Weeks Infant Outcome : Liveborn Infant Condition : Stable Infant Sex: Female IDENTIFICATION BABY A Infant Verification Date/Time: 10/06/2017 09:25 ID Band Number: [id number] Mother's Name Verified: Yes RN Verifying : R Oracio RN Additional Verifying Personnel: D [facility] RNC WEIGHT/LENGTH BABY A Infant Birthweight (gm): 3600 Weight (lb): 7 Infant Weight (oz): 15 Infant Length (in): 20.25 Length (cm): 51.44 CORD INFORMATION BABY A No. 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
== END 2017-10-08 13:30 | disposition home or self-care (01) | DRG 774 ==
LOC: LC 02:16 → UNDOADMIN 03:23 → LR 03:23 → 2S 18:11
PROVIDERS: ADMIT Student in an Organized Health Care Education/Training Program; ATTEND Student in an Organized Health Care Education/Training Program
PROC: 10E0XZZ Delivery of Products of Conception, External Approach (ICD-10-PCS; principal; 2017-10-06)
PROC: 4A1HXCZ Monitoring of Products of Conception, Cardiac Rate, External Approach (ICD-10-PCS; 2017-10-06)
PROC: 30233N1 Transfusion of Nonautologous Red Blood Cells into Peripheral Vein, Percutaneous Approach (ICD-10-PCS; 2017-10-06)
PROC: 30233N1 Transfusion of Nonautologous Red Blood Cells into Peripheral Vein, Percutaneous Approach (ICD-10-PCS; 2017-10-07)
DX: O48.0 Post-term pregnancy (principal); O72.1 Other immediate postpartum hemorrhage; D62 Acute posthemorrhagic anemia; O99.324 Drug use complicating childbirth; O99.02 Anemia complicating childbirth; F12.90 Cannabis use, unspecified, uncomplicated; Z37.0 Single live birth; Z3A.40 40 weeks gestation of pregnancy
CPT/HCPCS: 36415; 36430; 80307; 81005; 84112; 85025; 85027; 85362; 85384; 85610; 85730; 86592; 86701; 86850; 86900; 86901; 86920; 88307; 94760; J0295; J0690; J2300; J2550; J2590; J3490; J7120; P9016